=== PATIENT | male | born 1985 | race African-American/Black ===

== ENCOUNTER → 2016-06-15 | Emergency (ER) | payer BC, MEDICAID ==
[~2016-06-15] MED LIST: DUONEB INH ONE; METHYLPRED SOD SUCC 125 MG/2 ML VIAL ONE
== END | disposition left against medical advice (07) ==
LOC: ER 23:50
DX: Z53.21 Procedure and treatment not carried out due to patient leaving prior to being seen by health care provider (principal)
CPT/HCPCS: 71020